=== PATIENT | male | born 1995 | race Caucasian/White ===

== ENCOUNTER 2017-06-01 17:34 | Observation (INO) | payer OTHER ==
[~2017-06-01] VITALS: Ht 170.2 cm; Wt 81.7 kg
[2017-06-01] MEDS ORDERED: ONDANSETRON 2MG/ML, 2ML IVPush ONE ×2 (18:00→19:00)
[2017-06-01 18:30] LABS: BASOPHILS # (AUTO) 0.04 x10^3/uL (0-0.1); BASOPHILS % (AUTO) 0 % (0-1); EOSINOPHILS # (AUTO) 0.04 x10^3/uL (0-0.4); EOSINOPHILS % (AUTO) 0 % (1-7); LYMPHOCYTES # (AUTO) 2.64 x10^3/uL (1-3.4); LYMPHOCYTES % (AUTO) 22 % (22-44); MD NO; MEAN CORPUSCULAR HEMOGLOBIN 31.1 pg (27.5-34.5); MEAN CORPUSCULAR HGB CONC 33.9 g/dL (33.2-36.2); MEAN CORPUSCULAR VOLUME 91.7 fL (81-97); MEAN PLATELET VOLUME 7.9 fL (7.4-10.4); MONOCYTES # (AUTO) 0.64 x10^3/uL (0.2-0.8); MONOCYTES % (AUTO) 5 % (2-9); NEUTROPHILS # (AUTO) 8.88 x10^3/uL (1.8-6.8); NEUTROPHILS % (AUTO) 73 % (42-75); PLATELET COUNT 334 x10^3/uL (130-400); RED BLOOD COUNT 4.64 x10^6/uL (4.38-5.82); RED CELL DISTRIBUTION WIDTH 12.4 % (9.4-14.8)
[2017-06-01 18:40] LABS: ANION GAP 9 mmol/L (5-15); CHLORIDE 104 mmol/L (98-107); CREATININE 1.03 mg/dL (0.7-1.3)
[2017-06-01 18:41] LABS: ALANINE AMINOTRANSFERASE 28 U/L (12-78); ALBUMIN 3.7 g/dL (3.4-5.0)
[2017-06-01 18:43] LABS: ALKALINE PHOSPHATASE 77 U/L (45-117); BILIRUBIN,TOTAL 1.8 mg/dL (0.2-1.0); TOTAL PROTEIN 7.2 g/dL (6.4-8.2)
[2017-06-01] MEDS ORDERED: ONDANSETRON 2MG/ML, 2ML ONE (18:49)
[2017-06-01] MEDS ORDERED: FAMOTIDINE 20 MG/2 ML ONE (18:50)
[2017-06-01] MEDS ORDERED: PANTOPRAZOLE 80 MG in SODIUM CHLORIDE 0.9% 50 ML IVPB ONE (18:55)
[2017-06-01] MEDS ORDERED: PANTOPRAZOLE 80 MG in SODIUM CHLORIDE 0.9% 100 ML IV SCH (18:55)
[2017-06-01] MEDS ORDERED: SODIUM CHLORIDE 0.9% 1,000ML IVBOLUS ONE ×2 (19:00)
[2017-06-01] MEDS ORDERED: FAMOTIDINE 20 MG/2 ML IVP ONE (19:00)
[2017-06-01] MEDS ORDERED: SODIUM CHLORIDE FLUSH 10ML SYR IVF ONE ×2 (19:00)
[2017-06-01] MEDS ORDERED: FAMOTIDINE 20 MG/2 ML IVPush ONE (19:00)
[2017-06-01 20:59] LABS: MICROSCOPIC NOT IND
[2017-06-01 21:08] LABS: CULTURE INDICATED? NO
[2017-06-01 23:51] VITALS: BP 105/68
[2017-06-02 02:00] VITALS: BP 102/64
[2017-06-02 08:26] VITALS: BP 116/74
[2017-06-02 10:26] LABS: BASOPHILS # (AUTO) 0.03 x10^3/uL (0-0.1); BASOPHILS % (AUTO) 0 % (0-1); EOSINOPHILS # (AUTO) 0.02 x10^3/uL (0-0.4); EOSINOPHILS % (AUTO) 0 % (1-7); LYMPHOCYTES # (AUTO) 2.45 x10^3/uL (1-3.4); LYMPHOCYTES % (AUTO) 31 % (22-44); MD NO; MEAN CORPUSCULAR HEMOGLOBIN 31.9 pg (27.5-34.5); MEAN CORPUSCULAR HGB CONC 34.8 g/dL (33.2-36.2); MEAN CORPUSCULAR VOLUME 91.8 fL (81-97); MEAN PLATELET VOLUME 7.8 fL (7.4-10.4); MONOCYTES # (AUTO) 0.56 x10^3/uL (0.2-0.8); MONOCYTES % (AUTO) 7 % (2-9); NEUTROPHILS # (AUTO) 4.97 x10^3/uL (1.8-6.8); NEUTROPHILS % (AUTO) 62 % (42-75); PLATELET COUNT 273 x10^3/uL (130-400); RED BLOOD COUNT 3.73 x10^6/uL (4.38-5.82); RED CELL DISTRIBUTION WIDTH 12.2 % (9.4-14.8)
[2017-06-02 10:33] LABS: ANION GAP 7 mmol/L (5-15); CALCIUM 8.3 mg/dL (8.5-10.1); CHLORIDE 108 mmol/L (98-107); CREATININE 1.09 mg/dL (0.7-1.3)
[2017-06-02] MEDS ORDERED: PROPOFOL 10 MG/ML, 20ML ONE (11:34)
[2017-06-02] MEDS ORDERED: ALBUTEROL SULFATE 2.5 MG/3 ML NPPB PRN (12:00)
[2017-06-02] MEDS ORDERED: LABETALOL 5MG/ML, 20ML IV PRN (12:00)
[2017-06-02] MEDS ORDERED: MEPERIDINE/PF 25MG/0.5ML IVPush PRN (12:00)
[2017-06-02] MEDS ORDERED: ONDANSETRON 2MG/ML, 2ML IVPush PRN (12:00)
[2017-06-02] MEDS ORDERED: hydrALAzine 20 MG/ML, 1ML IV PRN (12:00)
[2017-06-02] MEDS ORDERED: PROMETHAZINE 12.5 MG SUPP PR PRN (12:00)
[2017-06-02] MEDS ORDERED: FENTANYL PF 100 MCG/2ML IV PRN (12:00)
[2017-06-02] MEDS ORDERED: MIDAZOLAM 1 MG/ML, 2ML IV PRN (12:00)
[2017-06-02] MEDS ORDERED: OXYcodone 5 MG/5 ML ORAL.SOL UDC PO PRN (12:00)
[2017-06-02] MEDS ORDERED: HYDROmorphone 1 MG/ML, 1ML IV PRN (12:00)
[2017-06-02] MEDS ORDERED: OMEP-110 PO (13:09)
[2017-06-02] MEDS ORDERED: POTASSIUM CHLORIDE 20 MEQ TAB.ER.PRT PO SCH (13:30)
[2017-06-02 14:11] VITALS: BP 110/72
== END 2017-06-02 16:45 | disposition home or self-care (01) ==
LOC: ED 19:34 → INTOOBSV 21:12 → EDIP 21:12 → 3NE 23:14
PROVIDERS: ADMIT Internal Medicine; ATTEND Internal Medicine
DX: K20.9 Esophagitis, unspecified (principal); K44.9 Diaphragmatic hernia without obstruction or gangrene; K29.60 Other gastritis without bleeding; K92.2 Gastrointestinal hemorrhage, unspecified; K29.80 Duodenitis without bleeding; K29.71 Gastritis, unspecified, with bleeding; K21.0 Gastro-esophageal reflux disease with esophagitis; K92.0 Hematemesis; D72.829 Elevated white blood cell count, unspecified; E87.6 Hypokalemia; D64.9 Anemia, unspecified; R79.89 Other specified abnormal findings of blood chemistry
CPT/HCPCS: 36415; 43235; 80048; 80053; 81003; 83690; 85025; 86677; 86850; 86900; 93005; 96365; 96366; 96375; 99285; C9113; G0378; J2405; J2704; J7030; S0028